=== PATIENT | female | born 1990 | race Caucasian/White ===

== ENCOUNTER 2020-01-12 17:57 | Emergency (ER) | payer OTHER ==
[~2020-01-12] VITALS: Ht 167.6 cm; Wt 68.0 kg
--- NOTE | 2020-01-12 18:19 | NUR ---
BIB [facility] FOR FOR WITNESSED SEIZURE. WAS THERE. SAW SEIZURE. SAYS LASTED ABOUT 60 SECONDS. PT. AOX1 ON EMS ARRIVAL. AOX2 ON ARRIVAL TO ED. MONITORS CONNECTED. EKG COMPLETE. SEIZURES PRECAUTIONS IN PLACE. PT GIVEN CALL LIGHT, EDUCATED ON USE. AT BEDSIDE.
[2020-01-12] MEDS ORDERED: SODIUM CHLORIDE 0.9% 1,000ML IVBOLUS ONE (18:30)
[2020-01-12] MEDS ORDERED: PLEASE ENTER ALLERGIES MC SCH (18:30)
[2020-01-12 19:14] LABS: BASOPHILS % (AUTO) 0 % (0-1); EOSINOPHILS % (AUTO) 1 % (1-7); LYMPHOCYTES % (AUTO) 17 % (22-44); MEAN CORPUSCULAR HEMOGLOBIN 28.1 pg (27.0-34.8); MEAN CORPUSCULAR HGB CONC 33.5 g/dL (32.4-35.8); MEAN PLATELET VOLUME 9.2 fL (7.4-10.4); MONOCYTES % (AUTO) 5 % (2-9); NEUTROPHILS % (AUTO) 77 % (42-75); PLATELET COUNT 241 x10^3/uL (130-400)
[2020-01-12 19:16] LABS: ANION GAP 5 mmol/L (5-15); CALCIUM 8.8 mg/dL (8.5-10.1); CHLORIDE 108 mmol/L (98-107); CREATININE 0.79 mg/dL (0.55-1.02); MD NO
[2020-01-12 19:54] LABS: MICROSCOPIC NOT IND
[2020-01-12 20:07] LABS: AMPHETAMINE SCREEN, URINE Negative (Negative); BARBITURATE SCREEN, URINE Negative (Negative); BENZODIAZEPINE SCREEN, URINE Negative (Negative); CANNABINOID SCREEN, URINE Negative (Negative); COCAINE SCREEN, URINE Negative (Negative); METHADONE SCREEN, URINE Negative (Negative); OPIATE SCREEN, URINE Negative (Negative)
--- NOTE | 2020-01-12 21:12 | NUR ---
PT TO MRI
[2020-01-12] MEDS ORDERED: GADOTERATE 10 MMOL/20 ML SYR ONE (21:35)
--- NOTE | 2020-01-12 22:11 | NUR ---
REPORT GIVEN TO MIKE
--- NOTE | 2020-01-12 22:15 | NUR ---
report received from zara gleason
[2020-01-12] MEDS ORDERED: LEVETIRACETAM 1,000 MG in SODIUM CHLORIDE 0.9% 100 ML IV ONE (22:30)
--- NOTE | 2020-01-12 22:50 | NUR ---
sukhwinder infusing. pt in [place] with pleasant affect. dad at bedside
[2020-01-12] MEDS ORDERED: ACETAMINOPHEN 500 MG TABLET PO ONE (23:00)
[2020-01-12] MEDS ORDERED: ACETAMINOPHEN 500 MG TABLET ONE (23:03)
[2020-01-12 23:24] VITALS: BP 118/83
== END 2020-01-12 23:30 | disposition home or self-care (01) ==
LOC: ED 18:37
DX: S06.320A Contusion and laceration of left cerebrum without loss of consciousness, initial encounter (principal); R56.9 Unspecified convulsions; E03.9 Hypothyroidism, unspecified; R00.0 Tachycardia, unspecified; X58.XXXA Exposure to other specified factors, initial encounter; Y93.89 Activity, other specified; Y92.89 Other specified places as the place of occurrence of the external cause; Y99.8 Other external cause status
CPT/HCPCS: 36415; 70450; 70553; 80048; 80307; 80320; 81003; 82040; 84443; 84703; 85025; 93005; 96361; 96374; 99285; A9575; J1953; J7030; 96365; G0480

== ENCOUNTER → 2020-03-08 | Outpatient (CLI) | payer OTHER ==
[~2020-03-08] MED LIST: GADOTERATE 7.5 MMOL/15 ML VIAL ONE
== END | disposition home or self-care (01) ==
LOC: RAD 10:37
PROVIDERS: ATTEND Neurological Surgery
DX: C71.9 Malignant neoplasm of brain, unspecified (principal); I61.9 Nontraumatic intracerebral hemorrhage, unspecified; G93.0 Cerebral cysts
CPT/HCPCS: 70553; A9575